=== PATIENT | male | born 1945 | race Caucasian/White ===

== ENCOUNTER 2021-08-29 20:33 | Inpatient (IN) | payer MEDICARE, OTHER ==
[~2021-08-29] VITALS: Ht 175.3 cm; Wt 90.7 kg
--- NOTE | 2021-08-29 20:40 | NUR ---
Patient arrived by RA found unconscious in his room. Patient arrived unresponsive, pupils fixed and pinpoint. Audible rhonchi, emesis present on mouth and shirt, possible aspiration, on 15L non-rebreather. Narcan and dextrose given in the field, no effect. Paced rhythm on the monitor. RT called for deep suctioning and ABG.
[2021-08-29 21:20] LABS: CARBON DIOXIDE 27 mmol/L (21-32); CHLORIDE 103 mmol/L (98-107); CREATININE 2.1 mg/dL (0.6-1.3); GLUCOSE 66 mg/dL (74-106); POTASSIUM 4.3 mmol/L (3.5-5.1); UREA NITROGEN, BLOOD 41 mg/dL (7-18)
[2021-08-29 21:21] LABS: HEMATOCRIT 44.6 % (36.7-47.1); MEAN CORPUSCULAR HEMOGLOBIN 30.8 uug (23.8-33.4); MEAN CORPUSCULAR VOLUME 93.9 fL (73.0-96.2); PLATELET COUNT (AUTO) 275 K/uL (152-348)
[2021-08-29 21:26] LABS: ALANINE AMINOTRANSFERASE 21 U/L (16-63); ALKALINE PHOSPHATASE 105 U/L (50-136); ASPARTATE AMINOTRANSFERASE 37 U/L (15-37); BILIRUBIN,DIRECT 1.7 mg/dL (0.0-0.2); BILIRUBIN,TOTAL 2.9 mg/dL (0.2-1.0); TOTAL PROTEIN, SERUM 7.6 g/dL (6.4-8.2)
[2021-08-29] MEDS ORDERED: DEXTROSE 50% 50 ML DISP.SYRIN ONE (21:40)
[2021-08-29] MEDS ORDERED: METRONIDAZOLE 500 MG/NS 100 ML PIGGYBACK IV ONE (22:45)
[2021-08-29] MEDS ORDERED: CEFTRIAXONE 1 G in IV DEXTROSE 5% 50 ML IV ONE (22:45)
[2021-08-29] MEDS ORDERED: IV D5/ 0.9% NACL 1,000 ML IV PRN (23:30)
[2021-08-29] MEDS ORDERED: METRONIDAZOLE 500 MG/NS 100ML 100 ML IV ONE (23:30)
[2021-08-29] MEDS ORDERED: MORPHINE SULFATE 2 MG/1 ML DISP.SYRIN IV PRN (23:30)
[2021-08-29] MEDS ORDERED: CEFTRIAXONE 1 G VIAL ONE (23:31)
[2021-08-30] VITALS (24 sets, daily range): BP systolic 88–123; BP diastolic 25–86
[2021-08-30] MEDS ORDERED: PIPERACILLIN/TAZOBACTAM/D5W 50 ML ONE ×2 (01:42→06:36)
[2021-08-30] MEDS ORDERED: VANCOMYCIN IV 1,000 MG in IV DEXTROSE 5% 250 ML IV ONE (02:00)
[2021-08-30] MEDS ORDERED: VANCOMYCIN IV 200 ML ONE (03:01)
[2021-08-30] MEDS ORDERED: PIPERACILLIN/TAZO 2.25 G in IV DEXTROSE 5% 50 ML IV ONE (06:00)
[2021-08-30 06:47] LABS: *BILIRUBIN,URIN 2+ (NEGATIVE); *BLOOD, URINE 3+ (NEGATIVE); *CLARITY,URINE SLIGHTLY CLOUDY (CLEAR); *COLOR,URINE Brown (YELLOW); *KETONES,URINE TRACE (NEGATIVE); LEUKOCYTE ESTERASE ,URINE NEGATIVE (NEGATIVE); NITRITE, URINE NEGATIVE (NEGATIVE); UGLUCOSE 1+ (NEGATIVE)
[2021-08-30] MEDS: BLOOD SUGAR DIAGNOSTIC 1 EACH STRIP VI SCH ×6 (06:57→21:22)
[2021-08-30] MEDS ORDERED: DEXTROSE 50% 50 ML DISP.SYRIN IV PRN ×3 (07:00→17:45)
[2021-08-30 08:34] LABS: HEMATOCRIT 39.6 % (36.7-47.1); MEAN CORPUSCULAR HEMOGLOBIN 31.3 uug (23.8-33.4); MEAN CORPUSCULAR VOLUME 93.8 fL (73.0-96.2); PLATELET COUNT (AUTO) 218 K/uL (152-348)
[2021-08-30] MEDS: ASPIRIN 300 MG RECTAL SUPP RC SCH (09:00)
[2021-08-30] MEDS: PANTOPRAZOLE SODIUM 40 MG VIAL IV SCH (09:00)
[2021-08-30 09:04] LABS: ALANINE AMINOTRANSFERASE 14 U/L (16-63); ALKALINE PHOSPHATASE 82 U/L (50-136); ASPARTATE AMINOTRANSFERASE 33 U/L (15-37); BILIRUBIN,TOTAL 2.1 mg/dL (0.2-1.0); CARBON DIOXIDE 26 mmol/L (21-32); CHLORIDE 104 mmol/L (98-107); CREATININE 2.2 mg/dL (0.6-1.3); GLUCOSE 163 mg/dL (74-106); MAGNESIUM 2.5 mg/dL (1.8-2.4); POTASSIUM 3.9 mmol/L (3.5-5.1); THYROID STIMULATING HORMONE 1.787 mIU/mL (0.358-3.740); TOTAL PROTEIN, SERUM 6.6 g/dL (6.4-8.2); UREA NITROGEN, BLOOD 49 mg/dL (7-18)
[2021-08-30] MEDS ORDERED: NOREPINEPHRINE BITARTRATE 8 MG in IV NORMAL SALINE 242 ML IV PRN (09:30)
[2021-08-30 09:41] LABS: CHOLESTEROL 125 mg/dL (<200); HDL CHOLESTEROL 38 mg/dL (40-60); TRIGLYCERIDES 67 MG/DL (30-150)
[2021-08-30 09:43] LABS: ETHANOL < 3 MG/DL (0-0)
[2021-08-30 09:44] LABS: *AMPHETAMINE, URINE NEGATIVE (NEGATIVE); *CANNABINOID, URINE NEGATIVE (NEGATIVE); *COCCAINE, URINE NEGATIVE (NEGATIVE); *OPIATE, URINE NEGATIVE (NEGATIVE); *PHENCYCLIDINE SCREEN,URINE NEGATIVE (NEGATIVE)
[2021-08-30 09:45] LABS: CREATINE KINASE, TOTAL 246 U/L (39-308); LIPASE 34 U/L (73-393)
[2021-08-30 09:46] LABS: ACETAMINOPHEN < 2.0 ug/mL (10-30)
[2021-08-30] MEDS ORDERED: PANTOPRAZOLE SODIUM 40 MG VIAL ONE (10:12)
[2021-08-30] MEDS ORDERED: ASPIRIN 300 MG RECTAL SUPP RC ONE (10:12)
[2021-08-30 10:19] LABS: ABG HCO3 24.1 mmol/L; ABG PCO2 37.7 mmHg (35.0-45.0); ABG PH 7.424 (7.350-7.450); ABG SITE RIGHT RADIAL; COHb 0.8 % (0.5-1.5); MetHb 0.1 % (0.0-1.5); O2Hb 96.4 % (94.0-97.0)
[2021-08-30] MEDS: HEPARIN SODIUM,PORCINE 5,000 UNITS/ML VIAL SQ SCH ×2 (10:30→21:03)
[2021-08-30] MEDS ORDERED: CEFEPIME HCL 2 G in IV DEXTROSE 5% 100 ML IV SCH (10:45)
[2021-08-30] MEDS ORDERED: NALOXONE HCL 4 MG in IV NORMAL SALINE 246 ML IV PRN (11:45)
[2021-08-30] MEDS ORDERED: DEXTROSE 5% IV SCH (12:00)
[2021-08-30] MEDS ORDERED: CEFEPIME HCL IV SCH (12:00)
[2021-08-30] MEDS ORDERED: PIPERACILLIN/TAZO 2.25 G in IV DEXTROSE 5% 50 ML IV SCH ×2 (12:00)
[2021-08-30] MEDS ORDERED: HEPARIN SODIUM,PORCINE 5,000 UNITS/ML VIAL ONE ×2 (12:39→21:03)
[2021-08-30] MEDS: CEFEPIME HCL 1 G in IV DEXTROSE 5% 50 ML IV SCH (12:42)
[2021-08-30] MEDS: ACETAMINOPHEN 650 MG SUPP.RECT RC PRN (12:46)
[2021-08-30] MEDS ORDERED: ACETAMINOPHEN 650 MG SUPP.RECT RC ONE (12:53)
[2021-08-30] MEDS: METRONIDAZOLE 500 MG/NS 100ML 500 MG in PREMIXED 1 EACH IV SCH ×2 (14:17→21:22)
[2021-08-30 15:24] LABS: BACTERIA,URINE FEW /HPF (NONE SEEN); RBC,URINE TNTC /HPF (0-3); SQUAMOUS EPITHELIAL CELL,UR FEW /HPF (NONE SEEN); URINE AMORPHOUS URATE MODERATE /HPF
[2021-08-30] MEDS ORDERED: BLOOD SUGAR DIAGNOSTIC 1 EACH STRIP VI SCH (17:00)
--- NOTE | 2021-08-30 19:30 | NUR ---
PATIENT ON NARCAN DRIP AT 1.1 MG/HR WEAN TO 0.9 MG/HR . RR 25,PUPILS 2 SLUGGISHLY REACTIVE . PATIENT WITHDRAWS TO PAIN .
--- NOTE | 2021-08-30 19:55 | NUR ---
called respiratory therapist ALFREDO came and evaluated patient ,suction patient orally and nasally ,advised respiratory therapist to give patient breathing treatment patient on Ventolin prn . respiratory therapist changed from a simple mask 7 liters to NRM 100% 15 liters.hob up and aspiration precaution observed .
--- NOTE | 2021-08-30 21:22 | NUR ---
FINGERSTICK BLOOD SUGAR DONE RESULT 124 MG/DL .NO INSULIN GIVEN . PATIENT NPO .
--- NOTE | 2021-08-30 21:30 | NUR ---
NARCAN DRIP NOW WEAN TO 0.7 MG/HR ,RR 18 TO 20, PUPILS SLUGGISHLY REACTIVE SIZE 2 MM .
--- NOTE | 2021-08-30 21:30 | NUR ---
PATIENT DAUGHTER AT [facility] VISITED PATIENT AND UPDATED WITH PATIENT STATUS AND CONDITION QUESTIONS ANSWERED, PER DAUGHTER PATIENT OPEN EYES TO HER VOICE,AND ON AND OFF SQUEEZES HER HAND.
[2021-08-30] MEDS ORDERED: FUROSEMIDE 40 MG/4 ML VIAL IV ONE (22:15)
--- NOTE | 2021-08-30 22:30 | NUR ---
SUCTION PATIENT WITH THICK GARZA TO VELA ,YELLOWISH SECRETION FROM THE MOUTH AND RIGHT AND LEFT NARES.
--- NOTE | 2021-08-30 22:30 | NUR ---
WEAN NARCAN DRIP 0.5 MG/HR .RR 25 SATURATION 100% PUPILS 2 TO 3 SLUGGISH REACTIVE . WITH DRAWS TO PAIN AND ON AND OFF OPEN EYES .
[2021-08-30] MEDS: ALBUTEROL SULFATE 2.5 MG/3 ML NEBU NEB PRN (22:51)
[2021-08-30] MEDS ORDERED: ALBUTEROL SULFATE 2.5 MG/3 ML NEBU ONE (22:52)
[2021-08-31] VITALS (20 sets, daily range): BP systolic 98–152; BP diastolic 44–97
--- NOTE | 2021-08-31 | NUR ---
FINGERSTICKS DONE AND NO INSULIN GIVEN PATIENT IS NPO .
[2021-08-31] MEDS: CEFEPIME HCL 1 G in IV DEXTROSE 5% 50 ML IV SCH ×2 (00:22→13:24)
[2021-08-31] MEDS: BLOOD SUGAR DIAGNOSTIC 1 EACH STRIP VI SCH ×4 (00:29→18:45)
[2021-08-31] MEDS: INSULIN REGULAR, HUMAN 300 UNIT/3 ML VIAL SQ PRN ×2 (00:30→05:42)
[2021-08-31] MEDS ORDERED: VANCOMYCIN IV 1,000 MG in IV DEXTROSE 5% 250 ML IV SCH (03:00)
[2021-08-31 05:00] LABS: HEMATOCRIT 39.3 % (36.7-47.1); MEAN CORPUSCULAR VOLUME 94.7 fL (73.0-96.2); PLATELET COUNT (AUTO) 212 K/uL (152-348)
--- NOTE | 2021-08-31 05:00 | NUR ---
AM CARE DONE ,BATH PATIENT CHANGED SOILED LINENS AND GOWN . ORAL CARE DONE AND CALDERON CARE DONE .
[2021-08-31 05:11] LABS: ALANINE AMINOTRANSFERASE 20 U/L (16-63); ALKALINE PHOSPHATASE 77 U/L (50-136); ASPARTATE AMINOTRANSFERASE 25 U/L (15-37); BILIRUBIN,TOTAL 1.7 mg/dL (0.2-1.0); CARBON DIOXIDE 27 mmol/L (21-32); CHLORIDE 106 mmol/L (98-107); CREATININE 2.4 mg/dL (0.6-1.3); GLUCOSE 138 mg/dL (74-106); MAGNESIUM 2.4 mg/dL (1.8-2.4); PHOSPHOROUS 4.1 mg/dL (2.5-4.9); POTASSIUM 3.8 mmol/L (3.5-5.1); TOTAL PROTEIN, SERUM 6.8 g/dL (6.4-8.2); UREA NITROGEN, BLOOD 54 mg/dL (7-18)
[2021-08-31] MEDS: ALBUTEROL SULFATE 2.5 MG/3 ML NEBU NEB PRN (05:16)
[2021-08-31] MEDS: METRONIDAZOLE 500 MG/NS 100ML 500 MG in PREMIXED 1 EACH IV SCH (05:21)
[2021-08-31] MEDS ORDERED: ALBUTEROL SULFATE 2.5 MG/3 ML NEBU ONE (05:22)
--- NOTE | 2021-08-31 05:49 | NUR ---
FINGERSTICK DONE NO INSULIN GIVEN BLOOD SUGAR 138.
[2021-08-31] MEDS ORDERED: IPRATROPIUM BROMIDE 0.5 MG/2.5 ML NEBU ONE (07:18)
[2021-08-31 08:04] LABS: ABG HCO3 24.5 mmol/L; ABG PCO2 39.6 mmHg (35.0-45.0); ABG SITE LEFT BRACHIAL; ABG TOTAL HEMOGLOBIN 13.5 G/dL (13.5-18.0); COHb 0.2 % (0.5-1.5); MetHb 0.4 % (0.0-1.5); O2Hb 98.7 % (94.0-97.0)
[2021-08-31] MEDS: FUROSEMIDE 40 MG/4 ML VIAL IV SCH ×2 (09:53→21:55)
[2021-08-31] MEDS: PANTOPRAZOLE SODIUM 40 MG VIAL IV SCH (09:53)
[2021-08-31] MEDS: ASPIRIN 300 MG RECTAL SUPP RC SCH (09:54)
[2021-08-31] MEDS ORDERED: PANTOPRAZOLE SODIUM 40 MG VIAL ONE (09:59)
[2021-08-31] MEDS ORDERED: FUROSEMIDE 40 MG/4 ML VIAL ONE ×2 (09:59→21:38)
[2021-08-31] MEDS ORDERED: ASPIRIN 300 MG RECTAL SUPP RC ONE (10:00)
[2021-08-31] MEDS: TICAGRELOR 90 MG TABLET PO SCH ×2 (11:22→23:26)
--- NOTE | 2021-08-31 15:50 | NUR ---
Notified Dr. Bolden of patients episode of possible vtach 134 rate. Received orders to have RT interrogate the pacemaker.
--- NOTE | 2021-08-31 19:20 | NUR ---
Assumed care of this patient now. Being an CONCRETE FINISHER , I will be documenting everything in EMR as I am not an VENEER PRODUCTION MACHINE OPERATOR and do not have access/training to ICU documentation and this is approved by administration due to pandemic/crisis staffing shortages/situation. Recieved report from FRANKY Merchant. Pt noted to be asleep, in no aparent distress. Vitals stable.
--- NOTE | 2021-08-31 21:22 | NUR ---
PT GONE DOWN FOR CT.
--- NOTE | 2021-08-31 21:40 | NUR ---
PT RETURNED FROM CT, STABLE CONDITION.
--- NOTE | 2021-08-31 23:28 | NUR ---
ADMINISTERED BRILINTA 90MG VIA NGT. FLUSHED NGT WITH 30CC STERLIE WATER PRIOR, MIXED MEDICATION WITH 10CC AND FLUSHED AGAIN WITH 30 CC STERILE WATER.
[2021-09-01] VITALS (16 sets, daily range): BP systolic 101–157; BP diastolic 58–104
[2021-09-01] MEDS: CEFEPIME HCL 1 G in IV DEXTROSE 5% 50 ML IV SCH ×2 (01:20→13:00)
[2021-09-01] MEDS ORDERED: CEFEPIME HCL 1 G VIAL ONE (01:28)
--- NOTE | 2021-09-01 01:47 | NUR ---
CALDERON CATH EMPTIED NOTED WITH 1600CC.
--- NOTE | 2021-09-01 04:23 | NUR ---
PUPILS NOTED TO BE REACTIVE TO LIGHT.
[2021-09-01 04:47] LABS: HEMATOCRIT 39.6 % (36.7-47.1); MEAN CORPUSCULAR HEMOGLOBIN 30.9 uug (23.8-33.4); MEAN CORPUSCULAR VOLUME 93.8 fL (73.0-96.2); PLATELET COUNT (AUTO) 233 K/uL (152-348)
[2021-09-01 05:00] LABS: CARBON DIOXIDE 31 mmol/L (21-32); CHLORIDE 107 mmol/L (98-107); CREATININE 2.2 mg/dL (0.6-1.3); GLUCOSE 136 mg/dL (74-106); MAGNESIUM 2.2 mg/dL (1.8-2.4); PHOSPHOROUS 3.9 mg/dL (2.5-4.9); POTASSIUM 3.1 mmol/L (3.5-5.1); UREA NITROGEN, BLOOD 56 mg/dL (7-18)
[2021-09-01] MEDS ORDERED: POTASSIUM CHLORIDE 20 MEQ POWDER PACKET GT ONE (06:30)
--- NOTE | 2021-09-01 06:55 | NUR ---
PT WAS TURNED AND REPOSITIONED Q 2 HOURS THROUGH OUT THE SHIFT, PROPER ORAL CARE AND SUCTIONING DONE BY RN AND RT.
[2021-09-01] MEDS ORDERED: PANTOPRAZOLE SODIUM 40 MG TABLET.DR PO SCH (07:00)
--- NOTE | 2021-09-01 07:02 | NUR ---
GAVE REPORT TO FRANKY SEXTON.
--- NOTE | 2021-09-01 07:20 | NUR ---
Received patient from ER on 6L simplemask, Pacing on the monitor, hemodynamically stable, afebrile, on air mattress. Noted to have a purple line on sacrum (new compared to previous night).
--- NOTE | 2021-09-01 08:02 | NUR ---
Report was given to CCU RN Shonda. Pt was transfered to CCU room #3.
[2021-09-01] MEDS: ASPIRIN 81 MG TAB.CHEW PO SCH (08:55)
[2021-09-01] MEDS: TICAGRELOR 90 MG TABLET PO SCH ×2 (08:57→20:43)
[2021-09-01] MEDS: FUROSEMIDE 40 MG/4 ML VIAL IV SCH ×2 (08:59→20:42)
[2021-09-01] MEDS: ALBUTEROL SULFATE 2.5 MG/3 ML NEBU NEB PRN ×3 (09:23→23:44)
[2021-09-01] MEDS: PANTOPRAZOLE SODIUM 40 MG VIAL IV SCH (09:36)
[2021-09-01] MEDS: POTASSIUM CHLORIDE 50 ML IV SCH ×3 (09:38→11:49)
[2021-09-01] MEDS ORDERED: ZOLP5TAB8 PO (14:06)
[2021-09-01] MEDS ORDERED: CARV6.252 PO (14:06)
[2021-09-01] MEDS ORDERED: AMYL1CAP58 PO (14:06)
[2021-09-01] MEDS ORDERED: DULA1.5P SQ (14:06)
[2021-09-01] MEDS ORDERED: ASPI81TA31 PO (14:06)
[2021-09-01] MEDS ORDERED: ALFU10TA10 PO (14:06)
[2021-09-01] MEDS ORDERED: FINA5TAB11 PO (14:06)
[2021-09-01] MEDS ORDERED: EMPA10TA PO (14:06)
[2021-09-01] MEDS ORDERED: INSU100V7 SQ (14:06)
[2021-09-01] MEDS ORDERED: ALLO100T PO (14:06)
[2021-09-01] MEDS ORDERED: FURO40TA5 PO (14:06)
[2021-09-01] MEDS ORDERED: LINA145C PO (14:06)
[2021-09-01] MEDS ORDERED: LINA5TAB PO (14:06)
--- NOTE | 2021-09-01 16:00 | NUR ---
communication electronic technician at bedside.
--- NOTE | 2021-09-01 18:00 | NUR ---
Patients landlords came to see patient and as per daughters request they were to give this sign writer hand more information on how they found the patient. Janelle Logan and Gino Desmond reported that they had seen him the night before and that he usually has the light on. The following morning they noted that he had been out at the grocery store, and at 130pm they had company and follow up to see if his light was on around 7pm, and went to check on patient. Patient did not answer the door and they proceeded to check in on patient. Gino found the patient with "one leg hanging of the edge of the bed, laying on his back with frothy vomit coming out of his mouth, and he was all wet with urine and sweating. He looked as if he was sick for a while because he had towels under him and around his face beside him". Janelle Logan state that all of his medication was neatly in his bag except for a bottle that was out of the bag and she recalls that it was "Meloxicam". She stated that she can be reached at [phone] and her can be reached at [phone]. She also stated that the medication bag was handed to the sister and brother to bring to the hospital along with patients wallet and cellphone after the insurance card was put back in the wallet from the paramedics.
--- NOTE | 2021-09-01 19:10 | NUR ---
tip of the penis is noted to have scant blood with no clots , sacral noted to have redness , and suctioned with blood yellow thick secretions
--- NOTE | 2021-09-01 19:10 | NUR ---
RECEIVED PATIENT NON RESPONSIVE ONLY WITHDRAWS TO DEEP PAIN , ON 6 LITERS SIMPLE MASK , NO FEVER , NGT GLUCERNA 20 ML , PLACEMENT CHECKED , NO RESIDUAL NOTED , CALDERON AND IV INTACT
--- NOTE | 2021-09-01 19:22 | NUR ---
Patient was seen by Dr. Nava, Ute Erwin and Yun today. Records from patients nail technician teacher placed in the back of the paper chart and identified new allergies and History along with medication list.
[2021-09-01] MEDS: ATORVASTATIN 40 MG TABLET PO SCH (20:43)
--- NOTE | 2021-09-01 21:00 | NUR ---
dr medina called , updates given on the patient
--- NOTE | 2021-09-01 21:23 | NUR ---
daughter claudia kim , updates given , [phone]
[2021-09-02] VITALS (24 sets, daily range): BP systolic 94–132; BP diastolic 53–100
[2021-09-02] MEDS: CEFEPIME HCL 1 G in IV DEXTROSE 5% 50 ML IV SCH ×2 (00:58→13:27)
[2021-09-02 05:43] LABS: HEMATOCRIT 42.6 % (36.7-47.1); MEAN CORPUSCULAR HEMOGLOBIN 30.8 uug (23.8-33.4); MEAN CORPUSCULAR VOLUME 94.3 fL (73.0-96.2); PLATELET COUNT (AUTO) 255 K/uL (152-348)
[2021-09-02 05:44] LABS: CARBON DIOXIDE 36 mmol/L (21-32); CHLORIDE 108 mmol/L (98-107); CREATININE 2.1 mg/dL (0.6-1.3); GLUCOSE 156 mg/dL (74-106); POTASSIUM 3.2 mmol/L (3.5-5.1); UREA NITROGEN, BLOOD 53 mg/dL (7-18)
[2021-09-02 05:48] LABS: ALANINE AMINOTRANSFERASE 14 U/L (16-63); ALKALINE PHOSPHATASE 80 U/L (50-136); ASPARTATE AMINOTRANSFERASE 18 U/L (15-37); BILIRUBIN,TOTAL 1.6 mg/dL (0.2-1.0); CARBON DIOXIDE 34 mmol/L (21-32); CHLORIDE 108 mmol/L (98-107); GLUCOSE 156 mg/dL (74-106); MAGNESIUM 2.4 mg/dL (1.8-2.4); PHOSPHOROUS 3.4 mg/dL (2.5-4.9); POTASSIUM 3.1 mmol/L (3.5-5.1); TOTAL PROTEIN, SERUM 7.1 g/dL (6.4-8.2); UREA NITROGEN, BLOOD 52 mg/dL (7-18)
--- NOTE | 2021-09-02 06:00 | NUR ---
patient is obtunded , no seizure or fever noted , tf off per order x 22 hours , running at 30 ml , no residual noted , suctioned nasally with thick yellow secretions , long and iv intact
--- NOTE | 2021-09-02 06:21 | NUR ---
dr garcia is here to see patient ,updates given on patient's condition
[2021-09-02] MEDS ORDERED: POTASSIUM CHLORIDE 20 MEQ POWDER PACKET GT ONE (06:30)
[2021-09-02] MEDS: ASPIRIN 81 MG TAB.CHEW PO SCH (07:57)
[2021-09-02] MEDS: TICAGRELOR 90 MG TABLET PO SCH ×2 (07:57→21:18)
[2021-09-02] MEDS: PANTOPRAZOLE SODIUM 40 MG VIAL IV SCH (07:57)
[2021-09-02] MEDS: FUROSEMIDE 40 MG/4 ML VIAL IV SCH ×2 (07:57→21:18)
[2021-09-02 08:53] LABS: ABG BASE EXCESS 10.2 mmol/L; ABG HCO3 36.1 mmol/L; ABG PCO2 52.7 mmHg (35.0-45.0); ABG PH 7.454 (7.350-7.450); ABG PO2 222.6 mmHg (75.0-100.0); ABG SITE RIGHT RADIAL; ABG TOTAL HEMOGLOBIN 15.3 G/dL (13.5-18.0); COHb 0.9 % (0.5-1.5); MetHb 0.2 % (0.0-1.5); O2Hb 98.4 % (94.0-97.0)
[2021-09-02] MEDS: FINASTERIDE 5 MG TABLET NG SCH (12:11)
[2021-09-02] MEDS: ACETAzolamide SODIUM 500 MG VIAL IV SCH (12:12)
[2021-09-02] MEDS: POTASSIUM CHLORIDE 50 ML IV SCH ×2 (12:14→13:28)
[2021-09-02 12:56] LABS: ABG BASE EXCESS 10.1 mmol/L; ABG HCO3 35.6 mmol/L; ABG PCO2 50.2 mmHg (35.0-45.0); ABG PH 7.469 (7.350-7.450); ABG PO2 112.3 mmHg (75.0-100.0); ABG SITE RIGHT RADIAL; ABG TOTAL HEMOGLOBIN 15.1 G/dL (13.5-18.0); COHb 0.8 % (0.5-1.5); MetHb 0.1 % (0.0-1.5); O2Hb 97.4 % (94.0-97.0); VENT MODE BIPAP - 15/5
[2021-09-02] MEDS: LINAGLIPTIN 5 MG TABLET NG SCH (13:27)
[2021-09-02 15:55] LABS: ALBUMIN 3.4; ALPHA-1-GLOBULIN 0.3
[2021-09-02 15:56] LABS: ALPHA-2-GLOBULIN 0.7; GAMMA GLOBULIN 0.9; M-SPIKE Not Observed
[2021-09-02 15:57] LABS: A/G RATIO 1.2; GLOBULIN, TOTAL 2.8
[2021-09-02 15:58] LABS: *IMMUNOGLOBULIN G, SERUM 905; IMMUNOGLOBULIN A, SERUM 404; IMMUNOGLOBULIN M, SERUM 85
[2021-09-02] MEDS: ATORVASTATIN 40 MG TABLET PO SCH (21:18)
[2021-09-02] MEDS: ALFUZOSIN HCL 10 MG TAB.SR.24H PO SCH (21:19)
[2021-09-02] MEDS: POLYVINYL ALCOHOL OPHT DROPS 15 ML BOTTLE EACHEYE PRN (21:35)
--- NOTE | 2021-09-02 23:49 | NUR ---
PATIENT WAS ON 40% VENTI/ MASK, THEN PT ON BI/PAP WITH FULL MASK, WITH SETTINGS, 15/5, R16- FIO2 @ 40%, DOING WELL, SUCTION PRN , LEFT NARE, SOME BLOODY TINGE SECRETIONS, WEAK COUGH AT TIMES, , WILL MONITOR CLOSELY, ADJUST MASK, SAT 95_98% . Leslie SMITH RCP Addendum: 09/02/21 at 2352 by CHIKI SMITH RT Amended: Links added.
[2021-09-03] VITALS (21 sets, daily range): BP systolic 91–125; BP diastolic 51–76
[2021-09-03] MEDS ORDERED: IV NORMAL SALINE 250 ML IV PRN (00:01)
[2021-09-03] MEDS: CEFEPIME HCL 2 G in IV DEXTROSE 5% 100 ML IV SCH ×2 (00:33→14:32)
[2021-09-03] MEDS: PANTOPRAZOLE ORAL SUSPENSION 40 MG SUSPDR.PKT GT SCH (05:28)
[2021-09-03 05:51] LABS: HEMATOCRIT 43.8 % (36.7-47.1); MEAN CORPUSCULAR HEMOGLOBIN 30.6 uug (23.8-33.4); MEAN CORPUSCULAR VOLUME 94.6 fL (73.0-96.2); PLATELET COUNT (AUTO) 273 K/uL (152-348)
[2021-09-03 05:55] LABS: CARBON DIOXIDE 36 mmol/L (21-32); CHLORIDE 106 mmol/L (98-107); CREATININE 2.4 mg/dL (0.6-1.3); GLUCOSE 249 mg/dL (74-106); MAGNESIUM 2.6 mg/dL (1.8-2.4); PHOSPHOROUS 2.8 mg/dL (2.5-4.9); POTASSIUM 3.6 mmol/L (3.5-5.1); UREA NITROGEN, BLOOD 63 mg/dL (7-18)
[2021-09-03] MEDS: ASPIRIN 81 MG TAB.CHEW PO SCH (08:04)
[2021-09-03] MEDS: FUROSEMIDE 40 MG/4 ML VIAL IV SCH (08:04)
[2021-09-03] MEDS: FINASTERIDE 5 MG TABLET NG SCH (08:04)
[2021-09-03] MEDS: ACETAzolamide SODIUM 500 MG VIAL IV SCH (08:05)
[2021-09-03] MEDS: LINAGLIPTIN 5 MG TABLET NG SCH (08:06)
[2021-09-03] MEDS: TICAGRELOR 90 MG TABLET PO SCH ×2 (08:06→22:12)
[2021-09-03 09:23] LABS: ABG BASE EXCESS 10.6 mmol/L; ABG HCO3 36.3 mmol/L; ABG PCO2 51.5 mmHg (35.0-45.0); ABG PH 7.466 (7.350-7.450); ABG PO2 76.4 mmHg (75.0-100.0); ABG SITE RIGHT RADIAL; ABG TOTAL HEMOGLOBIN 15.2 G/dL (13.5-18.0); COHb 0.9 % (0.5-1.5); MetHb 0.2 % (0.0-1.5); O2Hb 93.8 % (94.0-97.0); VENT MODE Mask - Venturi - 40%
[2021-09-03] MEDS: ALFUZOSIN HCL 10 MG TAB.SR.24H PO SCH (22:11)
[2021-09-03] MEDS: POLYVINYL ALCOHOL OPHT DROPS 15 ML BOTTLE EACHEYE PRN (22:12)
[2021-09-03] MEDS: ATORVASTATIN 40 MG TABLET PO SCH (22:14)
[2021-09-04] VITALS (18 sets, daily range): BP systolic 92–130; BP diastolic 55–79
[2021-09-04] MEDS: CEFEPIME HCL 2 G in IV DEXTROSE 5% 100 ML IV SCH (00:25)
[2021-09-04] MEDS: Z GUARD REMEDY PASTE 57 GM TUBE TOP PRN ×2 (04:00→23:20)
[2021-09-04 05:02] LABS: MEAN CORPUSCULAR HEMOGLOBIN 30.6 uug (23.8-33.4); MEAN CORPUSCULAR VOLUME 94.7 fL (73.0-96.2); PLATELET COUNT (AUTO) 252 K/uL (152-348)
[2021-09-04 05:19] LABS: CARBON DIOXIDE 35 mmol/L (21-32); CHLORIDE 106 mmol/L (98-107); CREATININE 2.8 mg/dL (0.6-1.3); MAGNESIUM 2.6 mg/dL (1.8-2.4); PHOSPHOROUS 3.4 mg/dL (2.5-4.9); POTASSIUM 3.6 mmol/L (3.5-5.1)
[2021-09-04] MEDS: PANTOPRAZOLE ORAL SUSPENSION 40 MG SUSPDR.PKT GT SCH (05:19)
[2021-09-04 05:24] LABS: GLUCOSE 342 mg/dL (74-106); UREA NITROGEN, BLOOD 82 mg/dL (7-18)
--- NOTE | 2021-09-04 05:30 | NUR ---
dtr: Hailee called / update.
--- NOTE | 2021-09-04 08:25 | NUR ---
Patient received and repositioned for comfort. Patient remained on biPap support with VC=068 and Rate of 16. Tolerating well. Patient placed on semi-melissa's position.
[2021-09-04 08:34] LABS: ABG BASE EXCESS 8.1 mmol/L; ABG PCO2 41.6 mmHg (35.0-45.0); ABG PH 7.504 (7.350-7.450); ABG PO2 75.6 mmHg (75.0-100.0); ABG SITE RIGHT RADIAL; ABG TOTAL HEMOGLOBIN 14.5 G/dL (13.5-18.0); COHb 0.8 % (0.5-1.5); O2Hb 95.1 % (94.0-97.0); VENT MODE BIPAP15/5
[2021-09-04] MEDS: LINAGLIPTIN 5 MG TABLET NG SCH (08:40)
[2021-09-04] MEDS: TICAGRELOR 90 MG TABLET PO SCH ×2 (08:40→20:31)
[2021-09-04] MEDS: ASPIRIN 81 MG TAB.CHEW PO SCH (08:41)
[2021-09-04] MEDS: FINASTERIDE 5 MG TABLET NG SCH (08:41)
[2021-09-04] MEDS: ACETAzolamide SODIUM 500 MG VIAL IV SCH (08:56)
[2021-09-04] MEDS ORDERED: FUROSEMIDE 40 MG/4 ML VIAL IV SCH (09:00)
--- NOTE | 2021-09-04 10:05 | NUR ---
Patient's daughter at bedside. Discussed plans of care. Dr. Erwin spoke to daughter and discussed plans of care.
--- NOTE | 2021-09-04 14:00 | NUR ---
Infectious disease physician at bedside and discussed treatment plans.
--- NOTE | 2021-09-04 15:00 | NUR ---
Dr. Suarez at bedside and discussed treatment plans with daughter; and agreeable.
--- NOTE | 2021-09-04 15:31 | NUR ---
Sy, [employer] OFFICER at bedside and discussed Dr. Suarez request for Off BiPAP trial. On trial at 1520. Patient was suctioned and responding. Positive gag reflex and slight coughing reflex noted. Patient with positive reaction to tube passing nasopharyngeal area. On continuous monitoring. 134/74/100%/22/88 paced.
[2021-09-04 16:03] LABS: ABG BASE EXCESS 7.9 mmol/L; ABG HCO3 32.5 mmol/L; ABG PCO2 44.8 mmHg (35.0-45.0); ABG PH 7.479 (7.350-7.450); ABG PO2 405.1 mmHg (75.0-100.0); ABG SITE RIGHT RADIAL; ABG TOTAL HEMOGLOBIN 14.9 G/dL (13.5-18.0); COHb 0.4 % (0.5-1.5); MetHb 0.3 % (0.0-1.5); O2Hb 99.1 % (94.0-97.0)
--- NOTE | 2021-09-04 16:15 | NUR ---
Received report from EM, RN. Patient is obtunded, nonverbal, responsive to painful stimuli, on simple mask @ 8LPM tolerating well. No signs of acute distress noted. NG tube patent with TF Glucerna 1.2 @10mls/hr, with no gastric residual. Checked IV site patent and flushed. SHEY ML patent and infusing with NS @TKO. No erythema, bleeding or infiltration noted. Porter catheter draining well to gravity.
[2021-09-04] MEDS: GLUCERNA 1.2 1000ML LIQUID GT PRN (16:50)
--- NOTE | 2021-09-04 18:14 | NUR ---
pt rec'd this am on BiPAP tolerating well, abg's drawn and reported. Q2 checked done with suctioning performed. mod thick bloody secretions noted. At 1520 off BiPAP trial started with abg's drawn X 30mins on NRB, following results pt left off BiPAP O2 weaned down to 8L SM. cont with current RT orders. cont to monitor and resume BiPAP as needed.
--- NOTE | 2021-09-04 19:30 | NUR ---
Family member at bedside, report given.
[2021-09-04] MEDS: ATORVASTATIN 40 MG TABLET PO SCH (20:32)
[2021-09-04] MEDS: ALFUZOSIN HCL 10 MG TAB.SR.24H PO SCH (20:32)
[2021-09-05] VITALS (24 sets, daily range): BP systolic 92–129; BP diastolic 53–90
[2021-09-05] MEDS ORDERED: CEFEPIME HCL 2 G in IV DEXTROSE 5% 100 ML IV SCH (01:00)
[2021-09-05 05:42] LABS: ABG HCO3 33.6 mmol/L; ABG PCO2 45.2 mmHg (35.0-45.0); ABG PH 7.489 (7.350-7.450); ABG PO2 91.5 mmHg (75.0-100.0); ABG SITE RIGHT RADIAL; ABG TOTAL HEMOGLOBIN 15.1 G/dL (13.5-18.0); COHb 0.6 % (0.5-1.5); MetHb 0.3 % (0.0-1.5); O2Hb 96.4 % (94.0-97.0)
[2021-09-05 05:49] LABS: BILIRUBIN,DIRECT 0.6 mg/dL (0.0-0.2); BILIRUBIN,TOTAL 1.1 mg/dL (0.2-1.0); TOTAL PROTEIN, SERUM 7.4 g/dL (6.4-8.2)
[2021-09-05] MEDS: PANTOPRAZOLE ORAL SUSPENSION 40 MG SUSPDR.PKT GT SCH (05:50)
--- NOTE | 2021-09-05 06:30 | NUR ---
Left patient on simple mask @ 8LPM, NG tube patent and TF Glucerna 1.2 @30mls/hr off at 0600, with the same IVF infusing, long catheter draining well to gravity. VSS.
[2021-09-05 08:29] LABS: CARBON DIOXIDE 32 mmol/L (21-32); CHLORIDE 106 mmol/L (98-107); CREATININE 2.6 mg/dL (0.6-1.3); GLUCOSE 260 mg/dL (74-106); POTASSIUM 3.3 mmol/L (3.5-5.1)
[2021-09-05 08:35] LABS: UREA NITROGEN, BLOOD 80 mg/dL (7-18)
[2021-09-05] MEDS ORDERED: FUROSEMIDE 40 MG TABLET GT SCH (09:00)
[2021-09-05] MEDS: FINASTERIDE 5 MG TABLET NG SCH (09:18)
[2021-09-05] MEDS: TICAGRELOR 90 MG TABLET PO SCH ×2 (09:18→20:42)
[2021-09-05] MEDS: ASPIRIN 81 MG TAB.CHEW PO SCH (09:18)
[2021-09-05] MEDS: ACETAzolamide SODIUM 500 MG VIAL IV SCH (09:18)
[2021-09-05] MEDS: LINAGLIPTIN 5 MG TABLET NG SCH (09:18)
[2021-09-05] MEDS ORDERED: POTASSIUM CHLORIDE 20 MEQ POWDER PACKET GT ONE (09:45)
[2021-09-05] MEDS ORDERED: DEXTROSE 50% 50 ML DISP.SYRIN IV PRN (11:00)
[2021-09-05] MEDS: BLOOD SUGAR DIAGNOSTIC 1 EACH STRIP VI SCH ×3 (11:56→21:03)
[2021-09-05] MEDS: INSULIN REGULAR, HUMAN 300 UNIT/3 ML VIAL SQ PRN ×3 (12:05→21:05)
[2021-09-05] MEDS: CARVEDILOL 6.25 MG TABLET PO SCH (16:42)
--- NOTE | 2021-09-05 17:00 | NUR ---
3 episodes of v-tach. started coreg per dr. garcia. and heart upto 150s and goes back down to 90s. patient in no distress.
--- NOTE | 2021-09-05 19:05 | NUR ---
received patient , arousable to deep pain , ngt glucerna at 75 ml , placement checked , no residual noted , no fever , long and iv intact , breathing treat ment given and suctioned on 8 l simple mask
--- NOTE | 2021-09-05 19:10 | NUR ---
glucerna 70 ml placement checked and no residual
[2021-09-05] MEDS: ALBUTEROL SULFATE 2.5 MG/3 ML NEBU NEB PRN (19:31)
[2021-09-05] MEDS: ATORVASTATIN 40 MG TABLET PO SCH (20:42)
[2021-09-05] MEDS: ALFUZOSIN HCL 10 MG TAB.SR.24H PO SCH (20:42)
[2021-09-05] MEDS: GLUCERNA 1.2 1000ML LIQUID GT PRN (23:01)
[2021-09-06] VITALS (21 sets, daily range): BP systolic 97–119; BP diastolic 51–71
--- NOTE | 2021-09-06 04:00 | NUR ---
patient was placed on bipap , patient was tachypneic , labored breathing 15/ 5 16 fio2 50 %
[2021-09-06 05:30] LABS: CARBON DIOXIDE 31 mmol/L (21-32); CHLORIDE 109 mmol/L (98-107); CREATININE 3.2 mg/dL (0.6-1.3); POTASSIUM 3.6 mmol/L (3.5-5.1)
[2021-09-06 05:40] LABS: GLUCOSE 327 mg/dL (74-106); UREA NITROGEN, BLOOD 90 mg/dL (7-18)
--- NOTE | 2021-09-06 06:00 | NUR ---
dr garcia is here updated on patient's condition and recent lab work results
--- NOTE | 2021-09-06 06:00 | NUR ---
obtunded , feeding was held per order 70 ml x 22 hours , iv and long intact , on bipap 15/ 5 16 fio2 50 % , on deep pain , spontaneous sluggish eye opening on , bilateral upper arms sluggish , bs 291
[2021-09-06] MEDS: PANTOPRAZOLE ORAL SUSPENSION 40 MG SUSPDR.PKT GT SCH (06:32)
[2021-09-06] MEDS: BLOOD SUGAR DIAGNOSTIC 1 EACH STRIP VI SCH ×3 (07:43→18:44)
[2021-09-06] MEDS: INSULIN REGULAR, HUMAN 300 UNIT/3 ML VIAL SQ PRN ×3 (07:43→18:45)
[2021-09-06] MEDS ORDERED: DEXTROSE 50% 50 ML DISP.SYRIN IV PRN (09:30)
[2021-09-06] MEDS: TICAGRELOR 90 MG TABLET PO SCH ×2 (09:35→20:39)
[2021-09-06] MEDS: ASPIRIN 81 MG TAB.CHEW PO SCH (09:35)
[2021-09-06] MEDS: MODAFINIL 100 MG TABLET PO SCH (09:35)
[2021-09-06] MEDS: FINASTERIDE 5 MG TABLET NG SCH (09:35)
[2021-09-06] MEDS: LINAGLIPTIN 5 MG TABLET NG SCH (09:36)
[2021-09-06] MEDS: ACETAzolamide SODIUM 500 MG VIAL IV SCH (09:36)
[2021-09-06] MEDS: CARVEDILOL 6.25 MG TABLET PO SCH ×2 (09:37→18:41)
[2021-09-06] MEDS: INSULIN GLARGINE,HUM 300 UNITS/3 ML CARTRIDGE SQ SCH ×2 (09:38→21:43)
--- NOTE | 2021-09-06 10:39 | NUR ---
dr. wagoner in the unit. ordered Bipap prn and abg tomorrow.
--- NOTE | 2021-09-06 19:15 | NUR ---
received patient obtunded , arousable with spontaneous eye opening in deep pain , ngt glucerna at 70 running , , placement checked , no residual noted , long intact orange red output , on venturi mask at 35 % , no fever , no labored breathing noted athis time
[2021-09-06] MEDS: ATORVASTATIN 40 MG TABLET PO SCH (20:39)
[2021-09-06] MEDS: ALFUZOSIN HCL 10 MG TAB.SR.24H PO SCH (20:40)
--- NOTE | 2021-09-06 23:00 | NUR ---
due to shallow breathing , patient was placed on a bipap 18/ 5 20 100 fio2 % , saturating 100 % rr 23 ,
--- NOTE | 2021-09-06 23:30 | NUR ---
23:26 , PATIENT BACK ON BI/PAP WITH SETTINGS AND ORDERED 14/03 , RR20 , 100% FOR NOW , NURSE JAH NOTIFIED . Leslie SMITH RCP Addendum: 09/06/21 at 2331 by CHIKI SMITH RT Amended: Links added.
[2021-09-07] VITALS (22 sets, daily range): BP systolic 92–131; BP diastolic 49–72
[2021-09-07] MEDS: BLOOD SUGAR DIAGNOSTIC 1 EACH STRIP VI SCH ×5 (00:07→23:57)
[2021-09-07] MEDS: INSULIN REGULAR, HUMAN 300 UNIT/3 ML VIAL SQ PRN ×6 (00:09→23:58)
--- NOTE | 2021-09-07 00:30 | NUR ---
Patient in labored breathing, O2 sat of 100%. Called RT regarding patient's condition. Patient placed on Bipap c/o RT Luis Fernando. Will continue to monitor closely.
[2021-09-07 05:17] LABS: HEMATOCRIT 45.8 % (36.7-47.1); MEAN CORPUSCULAR HEMOGLOBIN 30.3 uug (23.8-33.4); MEAN CORPUSCULAR VOLUME 93.4 fL (73.0-96.2); PLATELET COUNT (AUTO) 295 K/uL (152-348)
[2021-09-07 05:25] LABS: CARBON DIOXIDE 33 mmol/L (21-32); CHLORIDE 108 mmol/L (98-107); CREATININE 3.3 mg/dL (0.6-1.3); GLUCOSE 208 mg/dL (74-106); MAGNESIUM 2.7 mg/dL (1.8-2.4); PHOSPHOROUS 3.4 mg/dL (2.5-4.9); POTASSIUM 3.3 mmol/L (3.5-5.1)
[2021-09-07 05:42] LABS: UREA NITROGEN, BLOOD 98 mg/dL (7-18)
[2021-09-07] MEDS: PANTOPRAZOLE ORAL SUSPENSION 40 MG SUSPDR.PKT GT SCH (06:23)
--- NOTE | 2021-09-07 07:00 | NUR ---
dr smith is notified of [facility] episodes
[2021-09-07] MEDS ORDERED: CARVEDILOL 6.25 MG TABLET PO SCH (08:00)
[2021-09-07] MEDS: ASPIRIN 81 MG TAB.CHEW PO SCH (08:25)
[2021-09-07] MEDS: MODAFINIL 100 MG TABLET PO SCH (08:26)
[2021-09-07] MEDS: CARVEDILOL 3.125 MG TABLET PO SCH ×2 (08:26→18:47)
[2021-09-07] MEDS: FINASTERIDE 5 MG TABLET NG SCH (08:26)
[2021-09-07] MEDS: LINAGLIPTIN 5 MG TABLET NG SCH (08:26)
[2021-09-07] MEDS: TICAGRELOR 90 MG TABLET PO SCH ×2 (08:27→20:05)
[2021-09-07] MEDS: INSULIN GLARGINE,HUM 300 UNITS/3 ML CARTRIDGE SQ SCH ×2 (08:28→20:13)
[2021-09-07] MEDS: ACETAzolamide SODIUM 500 MG VIAL IV SCH (08:30)
[2021-09-07 08:49] LABS: ABG HCO3 27.9 mmol/L; ABG PCO2 32.4 mmHg (35.0-45.0); ABG PH 7.553 (7.350-7.450); ABG PO2 84.5 mmHg (75.0-100.0); ABG SITE RIGHT RADIAL; ABG TOTAL HEMOGLOBIN 15.8 G/dL (13.5-18.0); COHb 0.7 % (0.5-1.5); MetHb 0.4 % (0.0-1.5); O2Hb 95.3 % (94.0-97.0); VENT MODE BIPAP
[2021-09-07] MEDS ORDERED: POTASSIUM CHLORIDE 20 MEQ POWDER PACKET GT ONE (15:00)
[2021-09-07] MEDS: GLUCERNA 1.2 1000ML LIQUID GT PRN (16:48)
--- NOTE | 2021-09-07 19:00 | NUR ---
Received patient obtunded, nonverbal, responsive to painful stimuli, on venturi mask @ 28% tolerating well. No signs of pain or acute distress noted. NG tube patent with TG Glucerna 1.2 @70mls/hr, with no gastric residual volume. SHEY ML patent with ongoing NS @TKO. No erythema, bleeding or infiltration noted. Porter catheter draining well to gravity. Flexiseal intact.
[2021-09-07] MEDS: ATORVASTATIN 40 MG TABLET PO SCH (20:05)
[2021-09-07] MEDS: ALFUZOSIN HCL 10 MG TAB.SR.24H PO SCH (20:05)
[2021-09-07] MEDS ORDERED: IV D5W 1000ML 1,000 ML IV ONE (23:30)
[2021-09-08] VITALS (23 sets, daily range): BP systolic 84–113; BP diastolic 45–67
--- NOTE | 2021-09-08 02:02 | NUR ---
PATIENT ON VENTI/ MASK @ 24% , BREATHING SLOW AT TIMES, NOT VERY RESPONSIVE, NO VERBAL RESPONSE, CALLED BY NURSING APPROX. 00:30, PT USING ABD, BREATHING, PT THEN PLACED BACK ON BI/PAP WITH FULL MASK, SETTINGS, 18/5, R20, 35% , SAT 100% , PRN SUCTION, SLIGHT BLOODY TINGE SECRETIONS. Leslie BARCENASP Addendum: 09/08/21 at 0205 by CHIKI SMITH RT Amended: Links added.
--- NOTE | 2021-09-08 04:00 | NUR ---
AM care, skin care done. Linen changed.
[2021-09-08] MEDS: PANTOPRAZOLE ORAL SUSPENSION 40 MG SUSPDR.PKT GT SCH (05:50)
[2021-09-08 06:02] LABS: HEMATOCRIT 44.8 % (36.7-47.1); MEAN CORPUSCULAR HEMOGLOBIN 29.9 uug (23.8-33.4); MEAN CORPUSCULAR VOLUME 94.4 fL (73.0-96.2); PLATELET COUNT (AUTO) 284 K/uL (152-348)
[2021-09-08] MEDS: BLOOD SUGAR DIAGNOSTIC 1 EACH STRIP VI SCH ×3 (06:04→18:47)
[2021-09-08 06:05] LABS: CARBON DIOXIDE 27 mmol/L (21-32); CHLORIDE 107 mmol/L (98-107); CREATININE 5.2 mg/dL (0.6-1.3); MAGNESIUM 2.9 mg/dL (1.8-2.4); POTASSIUM 4.2 mmol/L (3.5-5.1)
[2021-09-08] MEDS: INSULIN REGULAR, HUMAN 300 UNIT/3 ML VIAL SQ PRN ×3 (06:05→18:48)
[2021-09-08 06:06] LABS: GLUCOSE 314 mg/dL (74-106)
[2021-09-08 06:11] LABS: UREA NITROGEN, BLOOD 125 mg/dL (7-18)
--- NOTE | 2021-09-08 06:15 | NUR ---
Hemodialysis started c/o Gino WILKINS. Addendum: 09/08/21 at 0721 by Denise Craft RN Wrong patient.
--- NOTE | 2021-09-08 06:15 | NUR ---
Dr. Malcolm made aware of patient's BUN lab. No new orders.
--- NOTE | 2021-09-08 07:23 | NUR ---
Left patient on Bipap machine on, NG tube in place TF Glucerna 1.2 @ 70mls/hr off at 0600, SHEY ML with ongoing D5W@50mls/hr; Porter catheter and flexiseal intact. VSS. Endorsed to FRANKY Saldana.
--- NOTE | 2021-09-08 07:58 | NUR ---
Received change of shift report from FRANKY Walker. pt switched from bipap to venturi mask with settings at 28% on 2L. no signs of distress, no reports of pain. pt on air loss mattress, pt obtunded, all extremities flaccid. MD to contact family regarding possible HD.
--- NOTE | 2021-09-08 08:30 | NUR ---
DR. CARO VISITED PT, ORDERS TO INCREASE FLUIDS FORM 50ML/HR TO 100ML/HR. ORDERS CARRIED OUT, WILL CONTINUE TO MONITOR.
[2021-09-08] MEDS: CARVEDILOL 3.125 MG TABLET PO SCH ×2 (08:33→17:14)
[2021-09-08] MEDS: MODAFINIL 100 MG TABLET PO SCH (08:33)
[2021-09-08] MEDS: FINASTERIDE 5 MG TABLET NG SCH (08:34)
[2021-09-08] MEDS: TICAGRELOR 90 MG TABLET PO SCH ×2 (08:34→20:54)
[2021-09-08] MEDS: ASPIRIN 81 MG TAB.CHEW PO SCH (08:34)
[2021-09-08] MEDS: LINAGLIPTIN 5 MG TABLET NG SCH (08:34)
[2021-09-08] MEDS: INSULIN GLARGINE,HUM 300 UNITS/3 ML CARTRIDGE SQ SCH ×2 (08:36→21:49)
[2021-09-08] MEDS: GLUCERNA 1.2 1000ML LIQUID GT PRN ×2 (08:41→23:27)
[2021-09-08] MEDS ORDERED: VANCOMYCIN FOR PO/GT/NG USE PO SCH (09:00)
[2021-09-08 09:01] LABS: ABG BASE EXCESS -1.2 mmol/L; ABG PCO2 37.2 mmHg (35.0-45.0); ABG PH 7.409 (7.350-7.450); ABG PO2 82.7 mmHg (75.0-100.0); ABG SITE RIGHT RADIAL; ABG TOTAL HEMOGLOBIN 14.3 G/dL (13.5-18.0); COHb 0.8 % (0.5-1.5); MetHb 0.2 % (0.0-1.5); O2Hb 95.5 % (94.0-97.0); VENT MODE Mask - Venturi
[2021-09-08] MEDS ORDERED: CEFTRIAXONE 1 G in IV DEXTROSE 5% 50 ML IV SCH (10:00)
[2021-09-08] MEDS ORDERED: INSULIN GLARGINE,HUM 300 UNITS/3 ML CARTRIDGE SQ SCH (10:00)
[2021-09-08] MEDS ORDERED: INSULIN GLARGINE,HUM 300 UNITS/3 ML CARTRIDGE SQ ONE (10:30)
[2021-09-08] MEDS: VANCOMYCIN FOR PO/GT/NG USE PO SCH ×3 (10:37→22:12)
[2021-09-08] MEDS ORDERED: NOREPINEPHRINE BITARTRATE 8 MG in IV NORMAL SALINE 242 ML IV PRN (11:15)
--- NOTE | 2021-09-08 12:30 | NUR ---
AIDE FROM [facility] STATED THAT PT IS CONFIRMED TO HAVE C. DIFF IN THE STOOL. NOTIFIED
[2021-09-08] MEDS ORDERED: CEFEPIME HCL 1 G in IV DEXTROSE 5% 50 ML IV SCH (13:00)
--- NOTE | 2021-09-08 13:19 | NUR ---
Late entry: Discussed request from Dr. Unger to follow up with cardiology and respiratory to start patient on Methylphenidate. Dr. Bolden and Rip agreed to try but to watch for arrhyhtmias.
[2021-09-08 16:00] LABS: *BILIRUBIN,URIN 1+ (NEGATIVE); *BLOOD, URINE 3+ (NEGATIVE); *CLARITY,URINE SLIGHTLY CLOUDY (CLEAR); *COLOR,URINE YELLOW (YELLOW); *KETONES,URINE NEGATIVE (NEGATIVE); *UROBILINOGEN,URINE 0.2 E.U./dl (NORMAL); LEUKOCYTE ESTERASE ,URINE TRACE (NEGATIVE); NITRITE, URINE NEGATIVE (NEGATIVE); PH,URINE 5.5 (5.0-8.0); UGLUCOSE NEGATIVE (NEGATIVE)
[2021-09-08 16:35] LABS: RBC,URINE 80-100 /HPF (0-3)
[2021-09-08 16:36] LABS: BACTERIA,URINE FEW /HPF (NONE SEEN)
--- NOTE | 2021-09-08 19:10 | NUR ---
received patient obtunded , on room air , ngt with glucerna 70 , placement checeked , no residual noted , no fever , midline , iv and long, rectal tube intact , with tea color urine , pacing at 89
--- NOTE | 2021-09-08 20:30 | NUR ---
dialysis nurse is here , informed , dialysis catheter is still not in placed , still waiting for placement to night
[2021-09-08] MEDS: ATORVASTATIN 40 MG TABLET PO SCH (20:46)
[2021-09-08] MEDS: ALBUTEROL SULFATE 2.5 MG/3 ML NEBU NEB PRN (20:51)
[2021-09-08] MEDS: ALFUZOSIN HCL 10 MG TAB.SR.24H PO SCH (20:54)
--- NOTE | 2021-09-08 21:00 | NUR ---
due to labored deep breathing and tachypnea, patient was placed on a bipap , 18/5 20 and 40 fio2%
--- NOTE | 2021-09-08 23:51 | NUR ---
zhang is here to insert hemodialysis catheter
[2021-09-09] VITALS (47 sets, daily range): BP systolic 87–176; BP diastolic 42–111
--- NOTE | 2021-09-09 00:02 | NUR ---
LEVOPHED STARTED AT 0.1 MCG
--- NOTE | 2021-09-09 00:15 | NUR ---
CXR DONE POST INTUBATION
[2021-09-09] MEDS: INSULIN REGULAR, HUMAN 300 UNIT/3 ML VIAL SQ PRN ×4 (00:55→19:29)
[2021-09-09] MEDS: BLOOD SUGAR DIAGNOSTIC 1 EACH STRIP VI SCH ×4 (00:57→19:27)
--- NOTE | 2021-09-09 01:00 | NUR ---
SUJEY CALLED , SANDRO TO USE HEMODIALYSIS CATHETER
--- NOTE | 2021-09-09 01:34 | NUR ---
DIALYSIS NURSE IS HERE TO START DIALYSIS
--- NOTE | 2021-09-09 02:39 | NUR ---
LEVOPHED INCRESED 0.2 MCG
--- NOTE | 2021-09-09 03:30 | NUR ---
dialysis is done 1 l out
[2021-09-09 04:30] LABS: HEMATOCRIT 48.2 % (36.7-47.1)
[2021-09-09 04:31] LABS: MEAN CORPUSCULAR VOLUME 92.7 fL (73.0-96.2); PLATELET COUNT (AUTO) 406 K/uL (152-348)
[2021-09-09] MEDS: VANCOMYCIN FOR PO/GT/NG USE PO SCH ×4 (04:38→21:58)
[2021-09-09 05:13] LABS: CARBON DIOXIDE 29 mmol/L (21-32); CHLORIDE 99 mmol/L (98-107); CREATININE 4.1 mg/dL (0.6-1.3); GLUCOSE 190 mg/dL (74-106); MAGNESIUM 2.5 mg/dL (1.8-2.4); PHOSPHOROUS 3.6 mg/dL (2.5-4.9); POTASSIUM 4.7 mmol/L (3.5-5.1)
[2021-09-09 05:14] LABS: UREA NITROGEN, BLOOD 80 mg/dL (7-18)
[2021-09-09] MEDS: PANTOPRAZOLE ORAL SUSPENSION 40 MG SUSPDR.PKT GT SCH (05:37)
--- NOTE | 2021-09-09 06:45 | NUR ---
levophed is turned off blood pressure is sustaining > 100
[2021-09-09 07:49] LABS: BAND % (MANUAL) 3 % (0-10); EOSINOPHILS % (MANUAL) 1 % (0-8); LYMPHOCYTES % (MANUAL) 5 % (20-40); MONOCYTES % (MANUAL) 2 % (2-10); NEUTROPHILS % (MANUAL) 89 % (42-75)
--- NOTE | 2021-09-09 08:00 | NUR ---
Received pt in bed, obtunded, gaurded. pt changed from bipap to venturi mask ay 45%, on air loss mattress, NG tube in place in right nare. long in place, draining small amounts of urine heather bloody. pt suctioned multiple time AM will continue to monitor.
--- NOTE | 2021-09-09 08:30 | NUR ---
Pt desaturation to 90%, when suctioned pt goes up to 94%, pt repositioned and mask set to 50%. pt saturating at 96%, no signs of distress. will continue to monitor.
[2021-09-09] MEDS ORDERED: ALBUMIN HUMAN 25% 100 ML IV PRN (08:45)
[2021-09-09 08:58] LABS: ABG BASE EXCESS -1.2 mmol/L; ABG HCO3 22.4 mmol/L; ABG PCO2 34.8 mmHg (35.0-45.0); ABG PH 7.427 (7.350-7.450); ABG PO2 62.8 mmHg (75.0-100.0); ABG SITE RIGHT RADIAL; ABG TOTAL HEMOGLOBIN 15.7 G/dL (13.5-18.0); COHb 0.6 % (0.5-1.5); MetHb 0.2 % (0.0-1.5); O2Hb 91.3 % (94.0-97.0); VENT MODE Mask - Venturi - 40%
[2021-09-09] MEDS: CARVEDILOL 3.125 MG TABLET PO SCH ×2 (09:14→18:00)
[2021-09-09] MEDS: METHYLPHENIDATE HCL 5 MG TABLET PO SCH (09:14)
[2021-09-09] MEDS: FINASTERIDE 5 MG TABLET NG SCH (09:14)
[2021-09-09] MEDS: ASPIRIN 81 MG TAB.CHEW PO SCH (09:14)
[2021-09-09] MEDS: MODAFINIL 100 MG TABLET PO SCH (09:15)
[2021-09-09] MEDS: INSULIN GLARGINE,HUM 300 UNITS/3 ML CARTRIDGE SQ SCH ×2 (09:37→21:40)
[2021-09-09] MEDS: TICAGRELOR 90 MG TABLET PO SCH ×2 (09:38→21:30)
[2021-09-09] MEDS: LINAGLIPTIN 5 MG TABLET NG SCH (09:41)
[2021-09-09] MEDS: ACYCLOVIR IV 500 MG in IV DEXTROSE 5% 100 ML IV SCH (12:18)
--- NOTE | 2021-09-09 13:18 | NUR ---
Notified Dr. Montgomery or patient having massive nasal and oral bleeding and desaturation to high 70's. Will arrive at bedside KAYLEE.
--- NOTE | 2021-09-09 13:38 | NUR ---
Continued to suction patient with large blood clots and saved for MD evaluation. Dr. Montgomery at bedside. Patient saturation returned to 94%
[2021-09-09 15:08] LABS: HEMATOCRIT 42.4 % (36.7-47.1)
--- NOTE | 2021-09-09 16:12 | NUR ---
Notified Dr. Bolden and Dr. Montgomery of patient going into sustained VTACH. Received orders from Dr. Bolden with DDr. Montgomery on the line to place patient on defibrilator pads and start amiodarone. Patient continued to have excessive nasal bleeding through suction and sounds very garbled.
[2021-09-09] MEDS ORDERED: AMIODARONE HCL IV 150 MG in IV DEXTROSE 5% 100 ML IV ONE (16:45)
[2021-09-09] MEDS: AMIODARONE HCL IV 450 MG in IV DEXTROSE 5% 250 ML IV PRN (16:53)
--- NOTE | 2021-09-09 19:00 | NUR ---
Received patient obtunded, nonverbal, responsive to painful stimuli. No signs of pain nor distress noted. On simple mask @10LPM, Os sat=95%. NG tube with TF Glucerna 1.2 @70mls/hr, with no gastric residual. Checked IV site patent SHEY ML with ongoing Amiodarone drip 1mg/min, HR=88. RIJ Alex catheter for HD. Porter catheter draining well to gravity. Flexiseal intact. Will continue to monitor closely.
--- NOTE | 2021-09-09 21:12 | NUR ---
Notified Dr. Montgomery patient's T=100.8, with new orders. Noted and carried out.
[2021-09-09] MEDS: ATORVASTATIN 40 MG TABLET PO SCH (21:31)
[2021-09-09] MEDS: ALFUZOSIN HCL 10 MG TAB.SR.24H PO SCH (21:32)
[2021-09-09] MEDS: Z GUARD REMEDY PASTE 57 GM TUBE TOP PRN (21:34)
[2021-09-09] MEDS: ACETAMINOPHEN 650 MG/20.3 ML LIQUID UDC GT PRN (21:38)
--- NOTE | 2021-09-09 21:40 | NUR ---
Hemodialysis started c/o Gino WILKINS. VSS. Will continue to monitor closely.
[2021-09-09] MEDS ORDERED: NOREPINEPHRINE BITARTRATE 4 MG/4 ML VIAL IV ONE (21:57)
[2021-09-09] MEDS: NOREPINEPHRINE BITARTRATE 8 MG in IV NORMAL SALINE 242 ML IV PRN ×2 (22:06→22:09)
--- NOTE | 2021-09-09 22:09 | NUR ---
BP=72/46. Started Levophed 0.1mcg/kg/min. Will continue to monitor closely.
--- NOTE | 2021-09-09 23:41 | NUR ---
Hemodialysis done 1L out, VSS. No signs of acute distress noted.
[2021-09-10] VITALS (96 sets, daily range): BP systolic 47–159; BP diastolic 31–93
[2021-09-10] MEDS: GLUCERNA 1.2 1000ML LIQUID GT PRN (00:59)
[2021-09-10] MEDS: BLOOD SUGAR DIAGNOSTIC 1 EACH STRIP VI SCH ×4 (00:59→17:06)
[2021-09-10] MEDS: AMIODARONE HCL IV 450 MG in IV DEXTROSE 5% 250 ML IV PRN ×2 (01:56→20:25)
[2021-09-10] MEDS: NOREPINEPHRINE BITARTRATE 8 MG in IV NORMAL SALINE 242 ML IV PRN ×3 (02:05→23:15)
[2021-09-10] MEDS ORDERED: NOREPINEPHRINE BITARTRATE 4 MG/4 ML VIAL IV ONE (02:11)
[2021-09-10] MEDS: VANCOMYCIN FOR PO/GT/NG USE PO SCH ×4 (04:53→22:25)
[2021-09-10] MEDS: PANTOPRAZOLE ORAL SUSPENSION 40 MG SUSPDR.PKT GT SCH (06:29)
[2021-09-10] MEDS: INSULIN REGULAR, HUMAN 300 UNIT/3 ML VIAL SQ PRN ×3 (06:34→17:11)
[2021-09-10 06:36] LABS: HEMATOCRIT 40.8 % (36.7-47.1); MEAN CORPUSCULAR VOLUME 92.4 fL (73.0-96.2); PLATELET COUNT (AUTO) 329 K/uL (152-348)
[2021-09-10 07:00] LABS: CARBON DIOXIDE 24 mmol/L (21-32); CHLORIDE 97 mmol/L (98-107); CREATININE 4.5 mg/dL (0.6-1.3); GLUCOSE 273 mg/dL (74-106); MAGNESIUM 2.5 mg/dL (1.8-2.4); PHOSPHOROUS 4.2 mg/dL (2.5-4.9); POTASSIUM 4.4 mmol/L (3.5-5.1); UREA NITROGEN, BLOOD 75 mg/dL (7-18)
--- NOTE | 2021-09-10 07:00 | NUR ---
Received pt. Obtunded withdrawing from pain only, not following commands. On Simple Mask 10L. with saturation of 100% pt. noted to be tachypneic with RR in the mid-30's low 40"s. with wheezing noted all lobes. Cardiac-iyer pt. on uncontrolled A-fib rate in the 120's-130's on off. with sbp been supported by levophed. and on amiodarone drip per protocol. Ng-tube clamped with feeding to be resumed as ordered tolerating well with no n/v. flexiseal in place with watery diarrhea. IV line patent. Cardiac-iyer pt. on uncontrolled A-fib rate in the 120's-130's on off. with sbp been supported by levophed. and on amiodarone drip per protocol.
--- NOTE | 2021-09-10 07:11 | NUR ---
Left patient on simple mask @10LPM, O2 sat 98%. No signs of distress noted. NG tube intact, TF Glucerna 1.2 @70mls/hr off [id number]. Still with ongoing Levophed 0.08mcg/kg/min, and Amiodarone 0.5mg/min, HR=92, BP=97/52. Porter catheter and flexiseal intact. Endorsed.
[2021-09-10 08:06] LABS: ABG BASE EXCESS 2.3 mmol/L; ABG HCO3 25.5 mmol/L; ABG PCO2 35.3 mmHg (35.0-45.0); ABG PH 7.477 (7.350-7.450); ABG PO2 76.6 mmHg (75.0-100.0); ABG SITE RIGHT RADIAL; ABG TOTAL HEMOGLOBIN 14.2 G/dL (13.5-18.0); COHb 0.5 % (0.5-1.5); MetHb 0.2 % (0.0-1.5); O2Hb 94.7 % (94.0-97.0)
[2021-09-10] MEDS: FINASTERIDE 5 MG TABLET NG SCH (08:09)
[2021-09-10] MEDS: MODAFINIL 100 MG TABLET PO SCH (08:09)
[2021-09-10] MEDS: METHYLPHENIDATE HCL 5 MG TABLET PO SCH (08:09)
[2021-09-10] MEDS: ASPIRIN 81 MG TAB.CHEW PO SCH (08:09)
[2021-09-10] MEDS: ACYCLOVIR IV 500 MG in IV DEXTROSE 5% 100 ML IV SCH (08:12)
[2021-09-10] MEDS: METRONIDAZOLE 500 MG/NS 100ML 500 MG in PREMIXED 1 EACH IV SCH ×2 (08:12→16:36)
[2021-09-10] MEDS: TICAGRELOR 90 MG TABLET PO SCH ×2 (08:31→20:34)
[2021-09-10] MEDS: LINAGLIPTIN 5 MG TABLET NG SCH (08:31)
[2021-09-10] MEDS: INSULIN GLARGINE,HUM 300 UNITS/3 ML CARTRIDGE SQ SCH ×2 (08:34→20:36)
[2021-09-10] MEDS ORDERED: MIDODRINE HCL 5 MG TABLET PO PRN (08:45)
--- NOTE | 2021-09-10 09:00 | NUR ---
Patient seen by overage shortage and damage clerk Louie
[2021-09-10 09:19] LABS: BILIRUBIN,DIRECT 0.6 mg/dL (0.0-0.2); BILIRUBIN,TOTAL 0.9 mg/dL (0.2-1.0); TOTAL PROTEIN, SERUM 7.2 g/dL (6.4-8.2)
--- NOTE | 2021-09-10 09:57 | NUR ---
Patient seen by mill stenciler Dr. Erwin report given see order hx.
--- NOTE | 2021-09-10 09:59 | NUR ---
Attending physician Dr. Gan in the unit to see and examine pt. report given, and orders to continue with care plan received.
[2021-09-10] MEDS: ACETAMINOPHEN 650 MG/20.3 ML LIQUID UDC GT PRN ×2 (10:59→20:53)
[2021-09-10] MEDS ORDERED: INSULIN GLARGINE,HUM 300 UNITS/3 ML CARTRIDGE SQ SCH (11:00)
--- NOTE | 2021-09-10 11:09 | NUR ---
Attending Dr. Whitaker in the unit to have a conference call with pt. family in regards to possible intubation.
[2021-09-10] MEDS ORDERED: AMIODARONE HCL IV 450 MG in IV DEXTROSE 5% 250 ML IV PRN ×2 (11:45→16:00)
[2021-09-10] MEDS: ACETAMINOPHEN 650 MG SUPP.RECT RC PRN (12:11)
--- NOTE | 2021-09-10 14:05 | NUR ---
HD process started at this time. HR of 116, sbp of 98/59, RR 45 pt. tolerating fairly.
--- NOTE | 2021-09-10 14:51 | NUR ---
HD procedure stopped as ordered by nephrology services, pt. did not tolerated procedure well, evidenced by sbp down to 57/46 heart rate A-fib. unstable up to 130's. and the need to increase levhoped up to 0.15mcg. Addendum: 09/10/21 at 1457 by RADHA MCDONOUGH RN reports given to HD. N.P. by HD rn. Joe. Yarbrough
--- NOTE | 2021-09-10 19:05 | NUR ---
Received patient obtunded withdrawing from pain only, not following commands. Currently on Simple Mask 10L with saturation of 99%. patient is tachypneic with RR in the 40s with wheezing and occasional rhonchi. Patient is in uncontrolled A-fib rate in the 100s-130's on off, on amiodarone drip at 1mg/min. BP is being supported by Levophed currently @0.19mcg/kg/min. Ng-tube clamped with feeding to be resumed as ordered tolerating well with no n/v. Flexiseal in place with watery diarrhea. IV line patent.
--- NOTE | 2021-09-10 19:22 | NUR ---
Left pt. Obtunded withdrawing from pain only, not following commands. On Simple Mask 10L. with saturation of 100% pt. noted to be tachypneic with RR in the mid-30's low 40"s. with wheezing. Cardiac-iyer pt. on uncontrolled A-fib rate in the 120's-130's on off. with sbp been supported by levophed. and on amiodarone drip at 1mg/min. Ng-tube clamped with feeding to be resumed as ordered tolerating well with no n/v. flexiseal in place with watery diarrhea. IV line patent. Will endorse to incoming shift.
[2021-09-10] MEDS: ATORVASTATIN 40 MG TABLET PO SCH (20:34)
[2021-09-10] MEDS: ALFUZOSIN HCL 10 MG TAB.SR.24H PO SCH (20:34)
--- NOTE | 2021-09-10 21:54 | NUR ---
Family members present. They expressed that they desire to place the patient on comfort measures in the AM should he make it through the night. Patient has continued to deteriorate requiring increases to the Levophed drip.
[2021-09-10] MEDS: LORAZEPAM 2 MG/1 ML VIAL IV PRN (22:24)
[2021-09-11] VITALS (53 sets, daily range): BP systolic 60–138; BP diastolic 36–104
[2021-09-11] MEDS: BLOOD SUGAR DIAGNOSTIC 1 EACH STRIP VI SCH ×3 (00:30→12:00)
[2021-09-11] MEDS: METRONIDAZOLE 500 MG/NS 100ML 500 MG in PREMIXED 1 EACH IV SCH ×2 (00:30→08:10)
[2021-09-11] MEDS: INSULIN REGULAR, HUMAN 300 UNIT/3 ML VIAL SQ PRN ×2 (00:31→06:36)
[2021-09-11] MEDS: NOREPINEPHRINE BITARTRATE 8 MG in IV NORMAL SALINE 242 ML IV PRN ×5 (01:34→11:25)
[2021-09-11] MEDS: VANCOMYCIN FOR PO/GT/NG USE PO SCH ×2 (04:32→10:25)
[2021-09-11] MEDS: ACETAMINOPHEN 650 MG/20.3 ML LIQUID UDC GT PRN (04:46)
[2021-09-11 05:07] LABS: HEMATOCRIT 40.1 % (36.7-47.1); MEAN CORPUSCULAR HEMOGLOBIN 29.6 uug (23.8-33.4); MEAN CORPUSCULAR VOLUME 91.8 fL (73.0-96.2); PLATELET COUNT (AUTO) 346 K/uL (152-348)
[2021-09-11 05:15] LABS: CARBON DIOXIDE 25 mmol/L (21-32); CHLORIDE 98 mmol/L (98-107); CREATININE 5.3 mg/dL (0.6-1.3); GLUCOSE 247 mg/dL (74-106); MAGNESIUM 2.3 mg/dL (1.8-2.4); PHOSPHOROUS 5.1 mg/dL (2.5-4.9); POTASSIUM 4.4 mmol/L (3.5-5.1)
[2021-09-11 05:16] LABS: UREA NITROGEN, BLOOD 81 mg/dL (7-18)
[2021-09-11] MEDS: AMIODARONE HCL IV 450 MG in IV DEXTROSE 5% 250 ML IV PRN ×2 (05:55→12:06)
[2021-09-11] MEDS: PANTOPRAZOLE ORAL SUSPENSION 40 MG SUSPDR.PKT GT SCH (06:34)
--- NOTE | 2021-09-11 06:55 | NUR ---
Patient remains obtunded on 10L simple mask. Patient has been tachypneic all night with RR 30-50. Patient remains on Levophed currently @ 0.56mcg/kg/min, and on Amiodarone 1mg/min. Ng-tube feeding currently off, patient didn't tolerate the feeding @30mL/hr very well with residuals up to 120ml. Flexiseal remains in place with watery diarrhea. Minimal urine output 15mL.
--- NOTE | 2021-09-11 07:00 | NUR ---
Received patient obtunded withdrawing from pain only, not following commands. Currently on Simple Mask 10L with saturation of 99%. patient is tachypneic with RR in the 40s with wheezing all over lungs. Cardiac-iyer uncontrolled A-fib rate in the 100s-130's on off, on amiodarone drip at 1mg/min. BP is being supported by Levophed currently @0.5mcg/kg/min. Ng-tube clamped with feeding to be resumed as ordered tolerating well with no n/v. Flexiseal in place with watery diarrhea. IV line patent. Oral cavity with some bleeding noted. will continue to monitor.
[2021-09-11] MEDS: MODAFINIL 100 MG TABLET PO SCH (08:10)
[2021-09-11] MEDS: METHYLPHENIDATE HCL 5 MG TABLET PO SCH (08:10)
[2021-09-11] MEDS: ASPIRIN 81 MG TAB.CHEW PO SCH (08:10)
[2021-09-11] MEDS: FINASTERIDE 5 MG TABLET NG SCH (08:10)
[2021-09-11] MEDS: TICAGRELOR 90 MG TABLET PO SCH (08:12)
[2021-09-11] MEDS: INSULIN GLARGINE,HUM 300 UNITS/3 ML CARTRIDGE SQ SCH (08:14)
--- NOTE | 2021-09-11 08:30 | NUR ---
Attending in the unit to follow up on pt. report given and orders to start pt. on morphine drip once daughters in the unit. also left orders for scopalamine ,and atropine. Pharmacist Deshanw present when orders received. Morphine to sart at 2mg/hr with tritration by 2mg/hr with maximum of 20mg/hr for comfort. Will continue to monitor.
[2021-09-11] MEDS ORDERED: SCOPOLAMINE PATCH 1 MG/72 HRS PATCH TD SCH (09:00)
--- NOTE | 2021-09-11 09:12 | NUR ---
Pulmonary services, Dr. Erwin in the unit to follow up on pt. report given. orders to continue with care plan received and implemented.
[2021-09-11 09:54] LABS: ABG BASE EXCESS 0.4 mmol/L; ABG HCO3 23.5 mmol/L; ABG PCO2 33.4 mmHg (35.0-45.0); ABG PH 7.466 (7.350-7.450); ABG PO2 88.3 mmHg (75.0-100.0); ABG SITE RIGHT RADIAL; ABG TOTAL HEMOGLOBIN 13.8 G/dL (13.5-18.0); COHb 0.4 % (0.5-1.5); MetHb 0.3 % (0.0-1.5); O2Hb 96.4 % (94.0-97.0)
[2021-09-11] MEDS ORDERED: MORPHINE SULFATE PF IV DRIP 100 MG in IV DEXTROSE 5% 96 ML IV PRN (10:15)
--- NOTE | 2021-09-11 10:35 | NUR ---
2 of 3 dtr's @ bedside.
[2021-09-11] MEDS: LORAZEPAM 2 MG/1 ML VIAL IV PRN (11:39)
--- NOTE | 2021-09-11 11:48 | NUR ---
Pt's 2 daughters and 1 sister at bedside and they requested to talk to attending physician one more time before comfort measures could be implemented. Dr. Montgomery called and notify and as informed He will be here within the next 15 mins.
--- NOTE | 2021-09-11 12:06 | NUR ---
Attending physician Dr. Montgomery in the unit to meet with pt's family who remain at bedside. Awaiting update.
--- NOTE | 2021-09-11 12:10 | NUR ---
After having a meeting with family Dr. Montgomery discussed orders with cheryl Hess and orders will be enter by pharmacist. Nasimudid and ativan will be initiated as order and approved by pharmacy. Addendum: 09/11/21 at 1219 by RADHA MCDONOUGH RN and orders to stop all medications and start comfort measures procedure.
[2021-09-11] MEDS ORDERED: DRIP IV PRN ×2 (12:30→14:30)
[2021-09-11] MEDS ORDERED: DEXTROSE 5% IV PRN ×2 (12:30→14:30)
[2021-09-11] MEDS ORDERED: HYDROMORPHONE HP IV PRN ×2 (12:30→14:30)
[2021-09-11] MEDS ORDERED: LORAZEPAM 2 MG/1 ML VIAL IV SCH (13:00)
--- NOTE | 2021-09-11 13:27 | NUR ---
removed simple mask and put pt on nasal cannula at 6L O2.
--- NOTE | 2021-09-11 14:30 | NUR ---
As noted pt. remains tachypneic with breathing higher 30's and also as requested by pt's daughter pt. "I think he needs more ativan He looks uncomfortable" orders to titrate dilaudid Q30min. and orders for ativan drip. and IVP of 2mg/Q1 while waiting for the drip.
[2021-09-11] MEDS ORDERED: LORAZEPAM IV PRN (14:45)
[2021-09-11] MEDS ORDERED: NORMAL SALINE IV PRN (14:45)
[2021-09-11] MEDS: LORAZEPAM 2 MG/1 ML VIAL IV SCH ×3 (14:52→16:17)
--- NOTE | 2021-09-11 15:00 | NUR ---
ATIVAN ORDER CHANGED TO Q30MIN, PER MD, FIRST DOSE TO BE GIVEN AT 1430, HELD 1500 DOSE AND NEXT ONE IS AT 1600
--- NOTE | 2021-09-11 15:00 | NUR ---
Due to some discrepancy in the final concentration of ativan drip and as discussed with pharmacist Radha patient will continue to received 2mgQ1 while right conc. on drip obtained and new bag started.
--- NOTE | 2021-09-11 15:52 | NUR ---
oxygen need decreased to 2L via Nasal canula.
--- NOTE | 2021-09-11 17:03 | NUR ---
ABG results notified to Dr. Erwin pulmonary services with new consult on pt. awaiting call back. At this time RT at bedside and as ordered by Louie Ashley BIPAP settings changed to 22/5, rate of 20 and FIO2 down to 60%.
[2021-09-11] MEDS ORDERED: ALPRAZOLAM 0.25 MG TABLET PO PRN (17:15)
--- NOTE | 2021-09-11 18:42 | NUR ---
Called [facility], spoke with Maddi, she stated that pt was NOT a candidate for [facility]. .
--- NOTE | 2021-09-11 19:06 | NUR ---
patient apneic for 5 minutes. pupils fixed and dilated. no audible heart tones, breath sounds for 1 minute. no palpable pulses for 1 minute no corneal reflex patient pronounced at [id number] physicians notified. Attending physician, data warehouse administrator and admitting notified.
--- NOTE | 2021-09-11 19:43 | NUR ---
Received patient on previous shift, postmortem care done, ID bands on patient, body bag, and belongings. Record of completed by previous shift RN. No mortuary listed for the patient. Patient will be brought down to the [facility].
[2021-09-12 01:06] LABS: HEPATITIS A AB, IgM Negative (Negative); HEPATITIS A AB, TOTAL Positive (Negative); HEPATITIS B SURFACE AG Negative (Negative); HEPATITIS Be ANTIGEN Negative (Negative)
[2021-09-12 17:26] LABS: HEPATITIS B SURFACE AG Negative
== END 2021-09-11 18:06 | DRG 871 ==
LOC: ER 20:38 → TRANSITION 08-30 01:30 → CCU 09-01 07:33
PROVIDERS: ADMIT Internal Medicine; ATTEND Internal Medicine
PROC: 05H533Z Insertion of Infusion Device into Right Subclavian Vein, Percutaneous Approach (ICD-10-PCS; 2021-08-30)
PROC: B546ZZA Ultrasonography of Right Subclavian Vein, Guidance (ICD-10-PCS; 2021-08-30)
PROC: 5A09457 Assistance with Respiratory Ventilation, 24-96 Consecutive Hours, Continuous Positive Airway Pressure (ICD-10-PCS; principal; 2021-09-02)
PROC: 5A1D70Z Performance of Urinary Filtration, Intermittent, Less than 6 Hours Per Day (ICD-10-PCS; 2021-09-08)
PROC: 02HV33Z Insertion of Infusion Device into Superior Vena Cava, Percutaneous Approach (ICD-10-PCS; 2021-09-09)
PROC: B548ZZA Ultrasonography of Superior Vena Cava, Guidance (ICD-10-PCS; 2021-09-09)
DX: A41.9 Sepsis, unspecified organism (principal); J96.01 Acute respiratory failure with hypoxia; G92.8 Other toxic encephalopathy; I21.A1 Myocardial infarction type 2; R65.21 Severe sepsis with septic shock; N17.0 Acute kidney failure with tubular necrosis; J69.0 Pneumonitis due to inhalation of food and vomit; J96.02 Acute respiratory failure with hypercapnia; I50.23 Acute on chronic systolic (congestive) heart failure; E11.641 Type 2 diabetes mellitus with hypoglycemia with coma; A04.72 Enterocolitis due to Clostridium difficile, not specified as recurrent; E87.0 Hyperosmolality and hypernatremia; J90 Pleural effusion, not elsewhere classified; R18.8 Other ascites; I13.0 Hypertensive heart and chronic kidney disease with heart failure and stage 1 through stage 4 chronic kidney disease, or unspecified chronic kidney disease; I47.2 Ventricular tachycardia; Z79.4 Long term (current) use of insulin; D64.9 Anemia, unspecified; I25.10 Atherosclerotic heart disease of native coronary artery without angina pectoris; I25.5 Ischemic cardiomyopathy; Z66 Do not resuscitate; Z95.1 Presence of aortocoronary bypass graft; Z95.3 Presence of xenogenic heart valve; Z95.5 Presence of coronary angioplasty implant and graft; I27.20 Pulmonary hypertension, unspecified; I48.0 Paroxysmal atrial fibrillation; N18.9 Chronic kidney disease, unspecified; K76.89 Other specified diseases of liver; K80.20 Calculus of gallbladder without cholecystitis without obstruction; E66.9 Obesity, unspecified; Z68.29 Body mass index [BMI] 29.0-29.9, adult; Z79.01 Long term (current) use of anticoagulants; Z95.2 Presence of prosthetic heart valve; I07.1 Rheumatic tricuspid insufficiency; Z20.822 Contact with and (suspected) exposure to COVID-19; Z95.810 Presence of automatic (implantable) cardiac defibrillator; K12.1 Other forms of stomatitis; E11.22 Type 2 diabetes mellitus with diabetic chronic kidney disease
CPT/HCPCS: 36415; 36600; 70030-TC; 70450; 71045; 72125; 72170; 76604; 76770; 82784; 83605; 83690; 83735; 84100; 84155; 84165; 84443; 85018; 85025; 85730; 86334; 86704; 86705; 86706; 86708; 86709; 86803; 87040; 87070; 87086; 87278; 87340; 87350; 87400; 87806; 90937; 93005; 93307; 93880; 94640; 94660; 94664; 95819; A4217; A4663; A6209; C9113; G0378; G0480; J0133; J0282; J0692; J0696; J1120; J1170; J1644; J1815; J1940; J2060; J2310; J2543; J3370; J3480; J3490; J3590; J7030; J7040; J7042; J7050; J7060; J7070; J8499; U0003